=== PATIENT | male | born 1945 | race Hispanic/Latino ===

== ENCOUNTER 2018-11-19 15:05 | Emergency (ER) | payer MEDICARE, BC ==
[2018-11-19] MEDS ORDERED: KETOROLAC TROMETHAMINE 30MG/ML ONE (17:43)
== END 2018-11-19 18:16 | disposition home or self-care (01) ==
LOC: EDH 15:05
DX: S22.32XA Fracture of one rib, left side, initial encounter for closed fracture (principal); I10 Essential (primary) hypertension; F43.10 Post-traumatic stress disorder, unspecified; Z91.013 Allergy to seafood; Z87.891 Personal history of nicotine dependence; W18.39XA Other fall on same level, initial encounter; Y93.89 Activity, other specified; Y92.89 Other specified places as the place of occurrence of the external cause; Y99.8 Other external cause status
CPT/HCPCS: 71250; 96372; 99284; J1885

== ENCOUNTER → 2018-12-16 | Outpatient (CLI) | payer MEDICARE | END | disposition home or self-care (01) | LOC: SHCH 13:31 | PROVIDERS: ATTEND Internal Medicine Cardiovascular Disease | DX: R01.1 Cardiac murmur, unspecified (principal) | CPT/HCPCS: 93306 ==

== ENCOUNTER 2019-10-12 18:08 | Emergency (ER) | payer MEDICARE, OTHER ==
[2019-10-12] MEDS ORDERED: SODIUM CHLORIDE 0.9% 1000ML 1,000 ML IV ONE (18:09)
[2019-10-12 18:45] LABS: BASOPHILS % (AUTO) 0.2 % (0.0-5.0); EOSINOPHILS % (AUTO) 0.3 % (0.0-8.0); LYMPHOCYTES % (AUTO) 10.5 % (21.0-51.0); MEAN CORPUSCULAR HEMOGLOBIN 32.6 pg (27.0-33.0); MEAN CORPUSCULAR HGB CONC 35.6 g/dL (32.0-36.0); MEAN CORPUSCULAR VOLUME 91.3 fL (79-99); MONOCYTES % (AUTO) 7.4 % (3.0-13.0); NEUTROPHILS % (AUTO) 81.2 % (40.0-77.0); PLATELET COUNT (AUTO) 207 K/uL (130-400); RED BLOOD CELL COUNT(AUTO) 4.27 MIL/uL (4.50-6.20); RED CELL DISTRIBUTION WIDTH 12.8 % (11.0-15.5); WHITE BLOOD COUNT (AUTO) 18.1 K/uL (4.8-10.8)
[2019-10-12 18:59] LABS: CREATININE 1.1 mg/dL (0.5-1.5); POTASSIUM 3.5 mmol/L (3.5-5.1)
[2019-10-12 19:04] LABS: ALBUMIN 4.1 g/dL (3.5-5.0); BILIRUBIN,TOTAL 1.1 mg/dL (0.2-1.0); TOTAL PROTEIN, SERUM 8.3 g/dL (6.0-8.3)
[2019-10-12] MEDS ORDERED: KETOROLAC TROMETHAMINE 15MG/ML ONE (19:27)
[2019-10-12] MEDS ORDERED: CEFTRIAXONE SODIUM 500 MG VIAL ONE (19:27)
[2019-10-12] MEDS ORDERED: SODIUM CHLORIDE 0.9% 50 ML IV ONE (19:29)
[2019-10-12 19:36] LABS: APPEARANCE,URINE Cloudy (CLEAR); BILIRUBIN,URINE Negative (NEGATIVE); COLOR,URINE Yellow (YELLOW); GLUCOSE, URINE (UA) Negative (NEGATIVE); KETONES,URINE Negative (NEGATIVE); LEUKOCYTE ESTERASE ,URINE Large (NEGATIVE); NITRATE,URINE Positive (NEGATIVE); OCCULT BLOOD,URINE Large (NEGATIVE); PROTEIN,URINE Trace mg/dL (NEGATIVE)
[2019-10-12 19:52] LABS: BACTERIA,URINE Many /HPF (None Seen); MUCUS,URINE Few LPF (None Seen); RBC,URINE 26-50 /HPF (0-1); SQUAMOUS EPITHELIAL CELL,UR Few /HPF (0-2); WBC,URINE 51-100 /HPF (0-1)
[2019-10-12] MEDS ORDERED: LEVOFLOXACIN 500 MG TABLET ONE ×2 (20:09→20:24)
== END 2019-10-12 20:27 | disposition home or self-care (01) ==
LOC: EDH 18:08
DX: N45.1 Epididymitis (principal); I10 Essential (primary) hypertension; Z87.891 Personal history of nicotine dependence; Z91.013 Allergy to seafood
CPT/HCPCS: 36415; 76870; 80053; 81001; 85025; 87077; 87088; 87186; 87486; 87797; 93005; 96374; 96375; 99285; J0696; J1885; J7030

== ENCOUNTER → 2019-12-15 | Outpatient (CLI) | payer MEDICARE | END | disposition home or self-care (01) | LOC: RAH 09:04 | PROVIDERS: ATTEND Family Medicine | DX: M75.51 Bursitis of right shoulder (principal); M25.511 Pain in right shoulder | CPT/HCPCS: 73221 ==

== ENCOUNTER 2020-01-31 10:27 | Emergency (ER) | payer OTHER, MEDICARE ==
[2020-01-31] MEDS ORDERED: ASPIRIN 325 MG TABLET ONE (10:54)
== END 2020-01-31 12:21 | disposition home or self-care (01) ==
LOC: EDH 10:27
DX: J06.9 Acute upper respiratory infection, unspecified (principal); I10 Essential (primary) hypertension; F43.10 Post-traumatic stress disorder, unspecified; Z91.013 Allergy to seafood; Z87.891 Personal history of nicotine dependence
CPT/HCPCS: 71045; 87804

== ENCOUNTER 2022-05-24 15:52 | Emergency (ER) | payer MEDICARE, OTHER ==
[~2022-05-24] VITALS: Ht 172.7 cm; Wt 72.6 kg
[2022-05-24 16:15] LABS: BASOPHILS % (AUTO) 0.2 % (0.0-5.0); EOSINOPHILS % (AUTO) 1.7 % (0.0-8.0); LYMPHOCYTES % (AUTO) 18.9 % (21.0-51.0); MEAN CORPUSCULAR HEMOGLOBIN 32.3 pg (27.0-33.0); MEAN CORPUSCULAR HGB CONC 35.4 g/dL (32.0-36.0); MEAN CORPUSCULAR VOLUME 91.3 fL (79-99); MONOCYTES % (AUTO) 8.2 % (3.0-13.0); NEUTROPHILS % (AUTO) 70.7 % (40.0-77.0); PLATELET COUNT (AUTO) 207 K/uL (130-400); RED BLOOD CELL COUNT(AUTO) 4.27 MIL/uL (4.50-6.20); RED CELL DISTRIBUTION WIDTH 12.6 % (11.0-15.5); WHITE BLOOD COUNT (AUTO) 8.7 K/uL (4.8-10.8)
[2022-05-24 16:22] LABS: CREATININE 0.9 mg/dL (0.5-1.5); POTASSIUM 3.5 mmol/L (3.5-5.1)
[2022-05-24 16:29] LABS: TOTAL PROTEIN, SERUM 7.7 g/dL (6.0-8.3)
[2022-05-24 17:09] LABS: APPEARANCE,URINE CLOUDY (CLEAR); BILIRUBIN,URINE NEGATIVE (NEGATIVE); COLOR,URINE LIGHT-YELLOW (YELLOW); GLUCOSE, URINE (UA) NEGATIVE (NEGATIVE); KETONES,URINE NEGATIVE (NEGATIVE); LEUKOCYTE ESTERASE ,URINE 500 Leu/uL (NEGATIVE); NITRATE,URINE 2+ (NEGATIVE); OCCULT BLOOD,URINE NEGATIVE (NEGATIVE); PH,URINE 6.5 (5.0-8.0); PROTEIN,URINE NEGATIVE (NEGATIVE); UROBILINOGEN,URINE 0.2 mg/dL (0.2-1.0)
[2022-05-24 17:20] LABS: BACTERIA,URINE FEW /HPF (None Seen); MUCUS,URINE FEW LPF (None Seen); SQUAMOUS EPITHELIAL CELL,UR RARE /HPF (0-2); WBC,URINE 51-100 /HPF (0-1); YEAST,URINE BUDDING FEW /HPF (None Seen)
[2022-05-24] MEDS ORDERED: 0.9%NACL 1000ML 1,000 ML IV ONE (18:00)
[2022-05-24] MEDS ORDERED: CIPR-279 PO (18:40)
[2022-05-24 19:39] VITALS: BP 163/78
== END 2022-05-24 19:41 | disposition home or self-care (01) ==
LOC: EDH 15:52
DX: N39.0 Urinary tract infection, site not specified (principal); E86.0 Dehydration
CPT/HCPCS: 99285; 96360; 70450; 82550; 84484; 80053; 85025; 87077; 87088; 87186; 81001; 36415; 93005; J7030

== ENCOUNTER 2022-07-24 10:22 | Emergency (ER) | payer BC, MEDICARE, OTHER ==
[~2022-07-24] VITALS: Ht 172.7 cm; Wt 74.8 kg
[~2022-07-24 10:22] MED LIST: CIPR-279 PO
[2022-07-24 11:19] LABS: BASOPHILS % (AUTO) 0.3 % (0.0-5.0); EOSINOPHILS % (AUTO) 1.8 % (0.0-8.0); HEMATOCRIT 41.2 % (42-54); LYMPHOCYTES % (AUTO) 19.1 % (21.0-51.0); MEAN CORPUSCULAR HEMOGLOBIN 32.7 pg (27.0-33.0); MEAN CORPUSCULAR HGB CONC 35.4 g/dL (32.0-36.0); MEAN CORPUSCULAR VOLUME 92.2 fL (79-99); MONOCYTES % (AUTO) 8.5 % (3.0-13.0); PLATELET COUNT (AUTO) 207 K/uL (130-400); RED BLOOD CELL COUNT(AUTO) 4.47 MIL/uL (4.50-6.20); WHITE BLOOD COUNT (AUTO) 8.8 K/uL (4.8-10.8)
[2022-07-24 11:27] LABS: CREATININE 0.9 mg/dL (0.5-1.5); POTASSIUM 3.9 mmol/L (3.5-5.1)
[2022-07-24 11:31] LABS: APPEARANCE,URINE CLEAR (CLEAR); BILIRUBIN,URINE NEGATIVE (NEGATIVE); COLOR,URINE LIGHT-YELLOW (YELLOW); GLUCOSE, URINE (UA) NEGATIVE (NEGATIVE); KETONES,URINE NEGATIVE (NEGATIVE); LEUKOCYTE ESTERASE ,URINE 75 Leu/uL (NEGATIVE); NITRATE,URINE NEGATIVE (NEGATIVE); OCCULT BLOOD,URINE NEGATIVE (NEGATIVE); PROTEIN,URINE NEGATIVE (NEGATIVE); UROBILINOGEN,URINE 0.2 mg/dL (0.2-1.0)
[2022-07-24 11:34] LABS: ALBUMIN 4.3 g/dL (3.5-5.0)
[2022-07-24 11:50] LABS: BACTERIA,URINE RARE /HPF (None Seen); RBC,URINE 0-1 /HPF (0-1); SQUAMOUS EPITHELIAL CELL,UR RARE /HPF (0-2)
[2022-07-24] MEDS ORDERED: KETOROLAC 15MG/ML VIAL (15MG/ML) IV ONE (12:00)
[2022-07-24 12:13] VITALS: BP 160/88
[2022-07-24] MEDS ORDERED: IBUP-2070 PO (12:27)
== END 2022-07-24 12:38 | disposition home or self-care (01) ==
LOC: EDH 10:22
DX: K40.90 Unilateral inguinal hernia, without obstruction or gangrene, not specified as recurrent (principal); R10.31 Right lower quadrant pain; I10 Essential (primary) hypertension; E78.00 Pure hypercholesterolemia, unspecified; Z98.890 Other specified postprocedural states
CPT/HCPCS: 99285; 74176; 96374; 80053; 85025; 87088; 81001; 36415; J1885

== ENCOUNTER 2022-07-28 12:10 | Emergency (ER) | payer MEDICARE, OTHER ==
[~2022-07-28] VITALS: Ht 172.7 cm; Wt 74.8 kg
[~2022-07-28 12:10] MED LIST changes: +IBUP-2070 PO
[2022-07-28 13:25] LABS: BASOPHILS % (AUTO) 0.4 % (0.0-5.0); EOSINOPHILS % (AUTO) 4.1 % (0.0-8.0); LYMPHOCYTES % (AUTO) 19.4 % (21.0-51.0); MEAN CORPUSCULAR HEMOGLOBIN 32.2 pg (27.0-33.0); MEAN CORPUSCULAR HGB CONC 35.1 g/dL (32.0-36.0); MEAN CORPUSCULAR VOLUME 91.8 fL (79-99); MONOCYTES % (AUTO) 10.3 % (3.0-13.0); NEUTROPHILS % (AUTO) 65.4 % (40.0-77.0); PLATELET COUNT (AUTO) 205 K/uL (130-400); RED BLOOD CELL COUNT(AUTO) 4.25 MIL/uL (4.50-6.20); WHITE BLOOD COUNT (AUTO) 8.6 K/uL (4.8-10.8)
[2022-07-28 13:43] LABS: CREATININE 0.8 mg/dL (0.5-1.5); POTASSIUM 4.1 mmol/L (3.5-5.1)
[2022-07-28 13:48] LABS: TOTAL PROTEIN, SERUM 7.7 g/dL (6.0-8.3)
[2022-07-28 16:24] VITALS: BP 134/92
== END 2022-07-28 16:26 | disposition home or self-care (01) ==
LOC: EDH 12:10
DX: K40.90 Unilateral inguinal hernia, without obstruction or gangrene, not specified as recurrent (principal); I10 Essential (primary) hypertension; E78.00 Pure hypercholesterolemia, unspecified; Z79.899 Other long term (current) drug therapy; Z98.890 Other specified postprocedural states; Z88.8 Allergy status to other drugs, medicaments and biological substances
CPT/HCPCS: 36415; 80053; 84484; 85025; 93005

== ENCOUNTER → 2023-08-29 | Outpatient (CLI) | payer MEDICARE ==
[2023-08-29 12:17] LABS: CREATININE 0.9 mg/dL (0.5-1.3); POTASSIUM 4.4 mmol/L (3.5-5.1)
== END | disposition home or self-care (01) ==
LOC: LAB 09:36
PROVIDERS: ATTEND Internal Medicine Cardiovascular Disease
DX: I10 Essential (primary) hypertension (principal)
CPT/HCPCS: 36415; 80048

== ENCOUNTER → 2023-09-05 | Outpatient (CLI) | payer MEDICARE ==
[~2023-09-05] MED LIST changes: +IOHEXOL 350 MG/ML 100ML INFUS..BTL IV ONE; +METOPROLOL TARTRATE 1 MG/ML 5ML VIAL IV ONE
== END | disposition home or self-care (01) ==
LOC: RAH 08:22
PROVIDERS: ATTEND Internal Medicine Cardiovascular Disease
DX: I25.10 Atherosclerotic heart disease of native coronary artery without angina pectoris (principal); R06.00 Dyspnea, unspecified; R07.9 Chest pain, unspecified; M47.815 Spondylosis without myelopathy or radiculopathy, thoracolumbar region; M47.814 Spondylosis without myelopathy or radiculopathy, thoracic region
CPT/HCPCS: 75574; J3490; Q9967

== ENCOUNTER → 2023-11-07 | Outpatient (CLI) | payer MEDICARE ==
[~2023-11-07] MED LIST changes: -IOHEXOL 350 MG/ML 100ML INFUS..BTL IV ONE; -METOPROLOL TARTRATE 1 MG/ML 5ML VIAL IV ONE
== END | disposition home or self-care (01) ==
LOC: SHCH 09:33
PROVIDERS: ATTEND Internal Medicine Cardiovascular Disease
DX: R06.00 Dyspnea, unspecified (principal)
CPT/HCPCS: 93306

== ENCOUNTER 2024-01-27 20:21 | Emergency (ER) | payer MEDICARE, OTHER ==
[~2024-01-27] VITALS: Ht 172.7 cm; Wt 77.1 kg
--- NOTE | 2024-01-27 20:25 | NUR ---
COVID AND FLU SWABS COLLECTED AND SENT
--- NOTE | 2024-01-27 20:34 | EKG ---
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
[2024-01-27 20:49] LABS: SARS-CoV-2, RNA, NAAT NEGATIVE SARS CoV-2 (NEGATIVE)
[2024-01-27 20:58] VITALS: BP 158/70; PULSE 67; RESP 20; TEMP 98.6; O2SAT 100
--- NOTE | 2024-01-27 21:09 | HMCIMG ---
CHEST 1VW REASON: SOB, COUGH, CP COMPARISON: 01/31/2020 FINDINGS: Single view of the chest was obtained. Lungs are clear. Heart size is normal. There is no pulmonary vascular congestion. Mediastinum and bony thorax appear unremarkable. IMPRESSION: 1. Normal single view chest x-ray.
[2024-01-27 21:11] LABS: BASOPHILS # (AUTO) 0.04 K/uL (0.00-0.20); BASOPHILS % (AUTO) 0.5 % (0.0-5.0); EOSINOPHILS # (AUTO) 0.36 K/uL (0.00-0.70); EOSINOPHILS % (AUTO) 4.5 % (0.0-8.0); HEMATOCRIT 35.7 % (42-54); IMMATURE GRANULOCYTE ABSOLUTE 0.03 K/uL (0-1); LYMPHOCYTES # (AUTO) 1.9 K/uL (1.0-4.8); LYMPHOCYTES % (AUTO) 23.5 % (21.0-51.0); MEAN CORPUSCULAR HEMOGLOBIN 33.2 pg (27.0-33.0); MEAN CORPUSCULAR HGB CONC 35.3 g/dL (32.0-36.0); MEAN CORPUSCULAR VOLUME 94.2 fL (79-99); NEUTROPHILS # (AUTO) 4.7 K/uL (1.8-7.7); NEUTROPHILS % (AUTO) 59.1 % (40.0-77.0); PLATELET COUNT (AUTO) 253 K/uL (130-400); RED BLOOD CELL COUNT(AUTO) 3.79 MIL/uL (4.50-6.20); RED CELL DISTRIBUTION WIDTH 12.3 % (11.0-15.5)
[2024-01-27 21:27] LABS: POTASSIUM 4.3 mmol/L (3.5-5.1)
[2024-01-27 21:36] LABS: INFLUENZA TYPE A NEGATIVE FOR TYPE A (NEGATIVE); INFLUENZA TYPE B NEGATIVE FOR TYPE B (NEGATIVE)
[2024-01-27] MEDS ORDERED: AZIT250T9 PO (21:45)
[2024-01-27] MEDS ORDERED: BENZ-39 PO (21:45)
--- NOTE | 2024-01-27 21:45 | ERN ---
General Chief Complaint: Cough Stated Complaint: COUGH, COVID + Time Seen by MD: 20:53 Time Seen by Midlevel: 20:53 Source: patient History of Present Illness Initial Comments Patient is a 70-year-old male presenting to the emergency department for evaluation of cough. Per patient he and his L Rodo Frias on January 14, 2024. He was seen at a local ER there on January 16, 2024 and tested positive for COVID-19. When they return home from their trip from [place] he was seen at a local freestanding on January 18 and still tested positive for COVID-19. Today he continues with generalized body weakness along with an intermittent productive cough. Patient denies any nausea, vomiting, diarrhea, or fevers. Allergies: Coded Allergies: No Known Drug Allergies (Unverified Allergy, Unknown, 11/19/18) shrimp (Unverified Allergy, Unknown, 11/19/18) Home Meds Active Scripts Benzonatate (Tessalon Perles) 100 Mg Cap, 100 MG PO TID for cough for 10 Days, #30 CAP 0 Refills Prov:DEYSI AYALA 01/27/24 Azithromycin (Azithromycin) 250 Mg Tablet, 1 TAB PO AD for 5 Days, #6 TAB 0 Refills 2 the first day followed by 1 for days 2-5 Prov:DEYSI AYALA 01/27/24 Ibuprofen (Ibuprofen) 600 Mg Tablet, 600 MG PO Q6H PRN for PAIN, #30 TAB Prov:DAQUAN HAINES MD 07/24/22 Ciprofloxacin HCl (Cipro) 250 Mg Tablet, 250 MG PO BID for 7 Days, #14 TAB Prov:HAIR LEE MD 05/24/22 Past Medical History Past Medical History: Diabetes-Type II, High Cholesterol, Heart Disease, Hypertension, Prostatitis, Other Medical History Other: RT INGUINAL HERNIA, BPH Past Surgical History: Appendectomy, Other Surgical History Other: RT KNEE SURGERY,RT SHOULDER SURGERY, CATARACTS, HERNIA Social History Social History: Negative ROS Dictation CONSTITUTIONAL: Negative except for HPI HEAD/FACE: Negative except for HPI EENT: Negative except for HPI RESPIRATORY: Negative except for HPI GASTROINTESTINAL/ABDOMINAL: Negative except for HPI GENITOURINARY: Negative except for HPI MUSCULOSKELETAL: Negative except for HPI INTEGUMENTARY: Negative except for HPI NEUROLOGICAL/PSYCH: Negative except for HPI HEMATOLOGIC/LYMPHATIC: Negative except for HPI All Systems Negative, Except as noted above. 13 point review of systems assessed and all negative except for above. Physical Exam Physical Exam Dictation Vital Signs reviewed General Appearance: Alert, oriented x 3, no acute distress, well developed, nourished. Head and Face: non-traumatic. Eyes: PERRL, pink conjunctivas, eyelid no trauma, anterior chamber with arcus senilis. Ears: Pinnas intact and no signs of trauma or erythema ear canals clear and no discharge TM no erythema Nose: No discharge, no bleeding. Oropharynx: Mouth normal, tongue pink, pharynx clear,no erythema, tonsils no exudates, no abscesses noted, mucous membrane moist Neck: Supple, non-tender, no thyromegaly, no masses, no JVD, no bruits Breast:Deferred Chest:No tenderness, no crepitus, no paradoxical movement, no retractions Lungs:Clear, well-ventilated, symmetric, no rales, no wheezing, no rhonchi, no stridor, good breath sounds bilaterally Heart: Regular rate, regular rhythm, no murmur, no gallops Vascular: no peripheral edema, Abdomen: Soft, positive bowel sounds, nondistended, no guarding, nontender, no rebound, no masses no hepatomegaly, no splenomegaly, no Thompson's sign, no hernias. Rectal: Deferred Genital: Deferred Neurological: Normal speech, motor function intact, sensory function intact Musculoskeletal: Neck nontender, full range of motion, back nontender, full range of motion, Extremities: nontender, full range of motion Skin: Color pink, dry, no turgor, no rash, no lacerations, no abrasions, no contusions. Lymphatic: Deferred Results Laboratory and Microbiology Lab and Micro Result Laboratory Tests Test 01/27/24 20:23 01/27/24 20:55 Influenza Type A Antigen NEGATIVE FOR TYPE A Influenza Type B Antigen NEGATIVE FOR TYPE B SARS-CoV-2, RNA, NAAT NEGATIVE SARS CoV-2 White Blood Count 8.0 K/uL (4.8-10.8) Red Blood Count 3.79 MIL/uL (4.50-6.20) L Hemoglobin 12.6 g/dL (14.0-18.0) L Hematocrit 35.7 % (42-54) L Mean Corpuscular Volume 94.2 fL (79-99) Mean Corpuscular Hemoglobin 33.2 pg (27.0-33.0) H Mean Corpuscular Hemoglobin Concent 35.3 g/dL (32.0-36.0) Red Cell Distribution Width 12.3 % (11.0-15.5) Platelet Count 253 K/uL (130-400) Mean Platelet Volume 9.7 fL (7.5-10.5) Immature Granulocyte % (Auto) 0.4 % (0-1) Neutrophils (%) (Auto) 59.1 % (40.0-77.0) Lymphocytes (%) (Auto) 23.5 % (21.0-51.0) Monocytes (%) (Auto) 12.0 % (3.0-13.0) Eosinophils (%) (Auto) 4.5 % (0.0-8.0) Basophils (%) (Auto) 0.5 % (0.0-5.0) Neutrophils # (Auto) 4.7 K/uL (1.8-7.7) Lymphocytes # (Auto) 1.9 K/uL (1.0-4.8) Monocytes # (Auto) 1.0 K/uL (0.1-1.0) Eosinophils # (Auto) 0.36 K/uL (0.00-0.70) Basophils # (Auto) 0.04 K/uL (0.00-0.20) Absolute Immature Granulocyte (auto 0.03 K/uL (0-1) Nucleated Red Blood Cells 0.0 % (0.0-0.19) Sodium Level 143 mmol/L (136-145) Potassium Level 4.3 mmol/L (3.5-5.1) Chloride Level 107 mmol/L (101-111) Carbon Dioxide Level 32 mmol/L (21-32) Blood Urea Nitrogen 17 mg/dL (7-18) Creatinine 1.0 mg/dL (0.5-1.3) Glomerular Filtration Rate Calc 77 mL/min (>90) Random Glucose 114 mg/dL (70-105) H Lactic Acid Level 1.9 mmol/L (0.8-2.5) Total Calcium 8.7 mg/dL (8.5-10.1) Total Creatine Kinase 375 U/L (21-232) #H Troponin I High Sensitivity 6 ng/L (4-75) Labs Reviewed?: Yes MDM MDM: Patient is a 70-year-old male presenting to the emergency department for evaluation of cough. Per patient he and his flew to [place] on January 14, 2024. He was seen at a local ER there on January 16, 2024 and tested positive for COVID-19. When they return home from their trip from [place] he was seen at a local freestanding on January 18 and still tested positive for COVID-19. Today he continues with generalized body weakness along with an intermittent productive cough. Patient denies any nausea, vomiting, diarrhea, or fevers. On physical examination patient is in no acute respiratory distress. His physical examination is unremarkable. His CBC is unremarkable. There was no leukocytosis. His hemoglobin is stable. His chemistries show a slightly elevated CK at 370 however patient declined fluids. His respiratory swabs are negative. His chest x-ray shows prominent interstitial markings which may represent pneumonitis. I did offer admission however patient is refusing to be admitted at this time. Patient will be discharged home with a prescription for Tessalon Perles and azithromycin to prevent an ammonia. Patient will be discharged and was advised to follow up with PCP in 1-2 days for repeat evaluation. Strict return precautions were given to the patient. Differential diagnosis: Pneumonia, pneumonitis, acute bronchitis, viral syndrome There are no social concerns with this patient. Prescription drug management Prescriptions will include: Azithromycin Medical management and examination interpretation discussions were had by me with other qualified healthcare professionals as indicated for the patient's care. ED Course Orders Procedure Category Date Status Time Covid Rna Naat LAB 01/27/24 Complete 20:24 Influenza Type A & B, LAB 01/27/24 Complete Rapid 20:24 Chest 1vw RAD 01/27/24 Resulted 20:24 Troponin I High LAB 01/27/24 Complete Sensitivity 20:24 Creatine Kinase, Total LAB 01/27/24 Complete 20:24 12 Lead Ekg Tracing- EKG 01/27/24 Complete Technical 20:24 Cbc With Differential LAB 01/27/24 Complete 20:24 Basic Metabolic Panel LAB 01/27/24 Complete 20:24 Lactic Acid LAB 01/27/24 Complete 20:24 Dexamethasone 4mg/Ml PHA 01/27/24 Complete 1ml Vial (Dexametha 22:00 Guaifenesin/Dextromethorphan PHA 01/27/24 Complete (Mucinex Dm 22:00 Current Medications Medications (Trade) Dose Ordered Sig/Gisella Route PRN Reason Start Time Stop Time Status Last Admin Dose Admin Dexamethasone Sodium Phosphate (dexaMETHasone 4MG/ML 1ML VIAL) 4 mg ONCE ONCE IV 01/27/24 22:00 01/27/24 21:54 DC 01/27/24 21:53 Guaifenesin/ Dextromethorphan (MUCinex DM 1 EACH TAB.SR.12H) 1 each ONCE ONCE PO 01/27/24 22:00 01/27/24 21:54 DC 01/27/24 21:53 Vital Signs Date Time Temp Pulse Resp B/P (MAP) Pulse Ox O2 Delivery O2 Flow Rate FiO2 01/27/24 20:58 98.6 67 20 158/70 100 Room Air* 0 21 01/27/24 20:22 97.5 75 20 169/84 96 Room Air DX & DISP Disposition: Discharge Departure Impression: Primary Impression: Pneumonitis Condition: Stable Scripts Benzonatate (Tessalon Perles) 100 Mg Cap 100 MG PO TID for cough for 10 Days, #30 CAP 0 Refills Prov: DEYSI AYALA 01/27/24 Azithromycin (Azithromycin) 250 Mg Tablet 1 TAB PO AD for 5 Days, #6 TAB 0 Refills 2 the first day followed by 1 for days 2-5 Prov: DEYSI AYALA 01/27/24 Referrals: LAURENCE CHANCE MD (PCP) Time of Disposition: 21:44 I have reviewed the case, and I agree with, Diagnosis and Plan I performed the substantive portion of the visit. I have reviewed and personally made and approve the management plan that is documented in the note by myself or the DANIA. I acknowledge for responsibility for the patient's management plan. DEYSI AYALA Jan 27, 2024 21:45
[2024-01-27] MEDS: guaiFENesin/dextroMETHORphan 1 EACH TAB.SR.12H PO ONE (21:53)
[2024-01-27] MEDS: dexaMETHasone SOD PHOSPHATE 4 MG/ML 1ML VIAL IV ONE (21:53)
== END 2024-01-27 21:54 | disposition home or self-care (01) ==
LOC: EDH 20:21
DX: J98.4 Other disorders of lung (principal); E78.00 Pure hypercholesterolemia, unspecified; I11.9 Hypertensive heart disease without heart failure; Z20.822 Contact with and (suspected) exposure to COVID-19; Z79.899 Other long term (current) drug therapy; Z90.49 Acquired absence of other specified parts of digestive tract; Z98.890 Other specified postprocedural states
CPT/HCPCS: 99285; 96374; 71045; 87635; 82550; 84484; 80048; 85025; 87804 ×2; 83605; 36415; 93005; J1100

== ENCOUNTER → 2024-03-11 | Outpatient (CLI) | payer OTHER ==
[~2024-03-11] MED LIST changes: +AZIT250T9 PO; +BENZ-39 PO
--- NOTE | 2024-03-11 13:24 | EKG ---
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
--- NOTE | 2024-03-11 17:02 | HMCSR ---
APPROVED REPORT EXAM: Two-dimensional and M-mode echocardiogram with Doppler and color Doppler. INDICATION ICD: Chronic ischemic heart disease, unspecified I25.9 2D Dimensions RVDd3.8 cmLVEF(%)80.4 (>50%)LVED Vol(simp.)110.0 mL IVSd0.8 (0.7-1.1cm)FS(%)49 %LVES Vol(simp.)46.5 mL LVDd4.5 (3.8-5.6cm)LA (2D)3.1 (1.6-4.0cm)LVEF(%, simp.)58 % PWd1.1 (0.7-1.1cm)Ao Root(2D)2.8 (2.0-3.7cm)LA ESV INDEX (4CH)23.00 mL/m2 IVSs1.3 cmLVOT diam1.8 (1.8-2.4cm)LA ESV INDEX (2CH)26.70 mL/m2 LVDs2.3 (2.5-4.0cm)LA ESV INDEX (BP)26.60 mL/m2 PWs1.5 cm M-Mode Dimensions EPSS0.5 cm LA (MM)3.1 (1.6-4.0cm) Ao Root(MM)2.1 (2.0-3.7cm) Aortic Valve AoV VTI0.3 mAo Mean GR4.0 mmHgLVOT VTI0.24 m YESENIA (VMAX)1.8 cm2AVA (VTI) 1.8 cm2 Mitral Valve MV E Bryy102.7 cm/sDECEL Uxtx241 ms MV A Vmax92.2 cm/sP 1/2 T92 ms E/A ratio1.2MVA (PHT)2.4 cm2 TDI E/E' Xemutf77.1E/E' Lateral8.2 Medial E' Peak V6.70 cm/sLateral E' Peak V13.20 cm/s Left Ventricle The left ventricle is normal size. There is normal LV segmental wall motion. There is normal left aisha tricular wall thickness. LVEF is 55-60%. Indeterminate diastolic dysfunction. Right Ventricle The right ventricle is normal size. The right ventricular systolic function is normal. Atria The left atrium size is normal. The right atrium size is normal. Aortic Valve The aortic valve is normal in structure. No aortic regurgitation is present. There is no aortic valvu lar stenosis. Mitral Valve The mitral valve is normal in structure. There is no mitral valve regurgitation noted. There is no mi tral valve stenosis. Tricuspid Valve The tricuspid valve is normal in structure. There is no tricuspid valve regurgitation noted. Pulmonic Valve The pulmonary valve is normal in structure. There is no pulmonic valvular regurgitation. Great Vessels The aortic root is normal in size. The IVC is normal in size and collapses >50% with inspiration. Pericardium There is no pericardial effusion. Conclusion LVEF is 55-60%. There is normal LV segmental wall motion. The right ventricle is normal size. The aortic root is normal in size. There is no pericardial effusion.
== END | disposition home or self-care (01) ==
LOC: RAH 12:11
PROVIDERS: ATTEND Chiropractor
DX: I25.9 Chronic ischemic heart disease, unspecified (principal); I49.8 Other specified cardiac arrhythmias; I45.10 Unspecified right bundle-branch block; I48.91 Unspecified atrial fibrillation
CPT/HCPCS: 93005; 93306

== ENCOUNTER → 2024-03-25 | Outpatient (CLI) | payer MEDICARE ==
--- NOTE | 2024-03-28 09:26 | HMCSR ---
APPROVED REPORT Laterality: Bilateral Indications i70.90 Doppler Spectral Velocity Analysis PSV / EDVPSV / EDV ECA (R) 77 / cm/sECA (L) 94 / cm/s dICA (R) 62 / 22 cm/sdICA (L) 72 / 29 cm/s Evaristo (R) 64 / 20 cm/smICA (L) 88 / 30 cm/s pICA (R) 53 / 14 cm/spICA (L) 104 / 33 cm/s dCCA (R) 49 / 12 cm/sdCCA (L) 76 / 18 cm/s mCCA (R) 85 / 19 cm/smCCA (L) 92 / 23 cm/s pCCA (R) 113 / 14 cm/spCCA (L) 112 / 22 cm/s Vert (R) 53 / cm/sVert (L) 23 / cm/s Subl. (R) 104 / cm/sSubl. (L) 258 / cm/s ICA/CCA 0.57ICA/CCA 0.93 Technologist Impression Minimal to mild plaque noted in the bilateral carotids, without hemodynamic significance. Bilateral vertebral arteries appear antegrade. Velocities in the left subclavian artery are suggestive of >50% stenosis. Conclusion Minimal to mild plaque noted in the bilateral carotids, without hemodynamic significance. Bilateral vertebral arteries appear antegrade. Velocities in the left subclavian artery are suggestive of >50% stenosis. Conclusion Minimal to mild plaque noted in the bilateral carotids, without hemodynamic significance. Bilateral vertebral arteries appear antegrade. Velocities in the left subclavian artery are suggestive of >50% stenosis.
== END | disposition home or self-care (01) ==
LOC: SHCH 10:18
PROVIDERS: ATTEND Internal Medicine Cardiovascular Disease
DX: R09.89 Other specified symptoms and signs involving the circulatory and respiratory systems (principal); I70.90 Unspecified atherosclerosis; R42 Dizziness and giddiness; I65.23 Occlusion and stenosis of bilateral carotid arteries
CPT/HCPCS: 93880